=== PATIENT | female | born 1955 | race Caucasian/White ===

== ENCOUNTER 2016-10-25 10:30 | Observation (INO) | payer SELFPAY ==
--- NOTE | 2016-10-25 10:55 | ER Document Report ---
ED Medical Screen (RME) - General Chief Complaint: Chest Pain Stated Complaint: CHEST DISCOMFORT Notes: Patient says she's been experiencing chest "pressure" in the center of her chest intermittently since Friday. She also has noted that her heart is skipping beats. Her symptoms began on Friday and then she was fine on Friday and , but came back this morning and have been steady. She feels a little bit short of breath. Patient has a history of CABG, IDDM, hypertension, ex-smoker 30 years. Known LBBB on EKG. Patient of Dr. Harvey. TRAVEL OUTSIDE OF THE [place] IN LAST 30 DAYS: No - Related Data Allergies/Adverse Reactions: azithromycin [Azithromycin] Allergy (Mild, Verified 10/25/16 10:33) rash Past Medical History - Past Medical History Cardiac Medical History: Reports: Hx Coronary Artery Disease, Hx Heart Attack, Hx Hypercholesterolemia, Hx Hypertension Endocrine Medical History: Reports: Hx Diabetes Mellitus Type 2, Hx Hypothyroidism Renal/ Medical History: Denies: Hx Peritoneal Dialysis Past Surgical History: Reports: Hx Appendectomy, Hx Section - x two, Hx Coronary Artery Bypass Graft. Denies: Hx Pacemaker - Immunizations Hx Diphtheria, Pertussis, Tetanus Vaccination: Yes Physical Exam - Vital signs Vitals: Temp Pulse Resp BP Pulse Ox 98.5 F 111 H 12 166/75 H 98 10/25/16 10:45 10/25/16 10:45 10/25/16 10:45 10/25/16 10:45 10/25/16 10:45 Course - Vital Signs Vital signs: Temp Pulse Resp BP Pulse Ox 98.5 F 111 H 12 166/75 H 98 10/25/16 10:45 10/25/16 10:45 10/25/16 10:45 10/25/16 10:45 10/25/16 10:45
--- NOTE | 2016-10-25 11:02 | ER Document Report ---
ED Cardiac - General Chief Complaint: Chest Pain Stated Complaint: CHEST DISCOMFORT Time seen by provider: 11:05 Mode of Arrival: Ambulatory Information source: Patient Notes: Patient is a 61 year old female presenting to the emergency department for chest pressure and palpitations. Patient states she has had these symptoms intermittently since Friday. Patient states during the chest pressure and palpitations she also has some shortness of breath and dizziness (room spinning) . Patient states she feels like her heart is "skipping a beat." Patient states the chest pressure radiates from her anterior chest wall and into her epigastric region. Patient states she took 352 mg of Aspirin this morning at 03: 00. Patient has a cough during the exam but does not state it as a complaint for today's visit. Patient states she took all of her medications last night. Patient has a cardiac history of [place], CABG, cardiac catheterization, former smoker, and diabetes mellitus. Patient last had a stress test in 2012; patient' s last EKG on file is 03/05/2013. Patient states she woke up this morning with a blood glucose level of 115. Patient did not eat and went to work and checked her blood glucose again and it was 154. Patient's level at the emergency department was 315 and the patient denies eating anything. Patient states she takes metformin daily and insulin at meals. Patient's primary care physician is Dr. Harvey and she has been seen by Dr. Garza for cardiology. TRAVEL OUTSIDE OF THE [place] IN LAST 30 DAYS: No - HPI Patient complains to provider of: Chest pain, Palpitations, Shortness of breath Was the onset of pain: Sudden When did pain begin: Friday Chest pain location: Substernal, Under breast Quality of pain: Intermittent Cardiac risk factors: Diabetes, Hypertension, Smoker - former, 30 years, Hx OK Positive cardiac history: Yes Associated symptoms: Dizziness - room spinning sensation during palpitations and chest pressure, Palpitations, Shortness of breath Similar symptoms previously: Yes Recently seen / treated by doctor: No - Related Data Allergies/Adverse Reactions: azithromycin [Azithromycin] Allergy (Mild, Verified 10/25/16 10:33) rash Past Medical History - General Information source: Patient, Relative - Social History Smoking Status: Former Smoker - 30 years Cigarette use (# per day): No Chew tobacco use (# tins/day): No Frequency of alcohol use: None Drug Abuse: None Family History: None Patient has suicidal ideation: No Patient has homicidal ideation: No - Past Medical History Cardiac Medical History: Reports: Hx Coronary Artery Disease, Hx Heart Attack, Hx Hypercholesterolemia, Hx Hypertension Endocrine Medical History: Reports: Hx Diabetes Mellitus Type 2, Hx Hypothyroidism Past Surgical History: Reports: Hx Appendectomy, Hx Cardiac Catheterization - 2014 (no stents), Hx Section - x2, Hx Coronary Artery Bypass Graft - Immunizations Hx Diphtheria, Pertussis, Tetanus Vaccination: Yes Review of Systems - Review of Systems Constitutional: No symptoms reported EENT: No symptoms reported Cardiovascular: See HPI, Chest pain, Palpitations, Dizziness Respiratory: See HPI, Short of breath Gastrointestinal: No symptoms reported Genitourinary: No symptoms reported Female Genitourinary: No symptoms reported Musculoskeletal: No symptoms reported Skin: No symptoms reported Hematologic/Lymphatic: No symptoms reported Neurological/Psychological: No symptoms reported -: Yes All other systems reviewed and negative Physical Exam - Vital signs Vitals: Temp Pulse Resp BP Pulse Ox 98.5 F 111 H 12 166/75 H 98 10/25/16 10:45 10/25/16 10:45 10/25/16 10:45 10/25/16 10:45 10/25/16 10:45 Interpretation: Hypertensive - Notes Notes: GENERAL: Well-appearing, well-nourished and in no acute distress. HEAD: Atraumatic, normocephalic. EYES: Pupils equal round and reactive to light, extraocular movements intact, sclera anicteric, conjunctiva are normal. ENT: Nares patent. Moist mucous membranes. Patent airway. NECK: Normal range of motion, supple without lymphadenopathy. LUNGS: Breath sounds clear to auscultation bilaterally and equal. No wheezes, rales, or rhonchi. No reproducible chest wall tenderness with palpitation. HEART: Regular rate and rhythm without murmurs. ABDOMEN: Soft, non-tender. No guarding, no rebound. No masses appreciated. EXTREMITIES: Normal range of motion, trace edema to the bilateral lower extremities. NEUROLOGICAL: No focal neurological deficits. Moves all extremities spontaneously and on command. PSYCH: Normal affect. Normal mood. SKIN: Warm, Dry, normal turgor, no rashes or lesions noted. Course - Vital Signs Vital signs: Temp Pulse Resp BP Pulse Ox 98.5 F 111 H 13 157/76 H 99 10/25/16 10:45 10/25/16 10:45 10/25/16 12:03 10/25/16 12:03 10/25/16 12:03 - Laboratory Result Diagrams: 10/25/16 11:15 10/25/16 11:15 Laboratory results interpreted by me: 10/25/16 10/25/16 11:15 11:15 WBC 11.6 H Absolute Neutrophils 8.9 H Potassium 5.1 H Glucose 277 H Calcium 10.5 H Total Protein 9.3 H - Consults Dr. Fritz Time consulted: 12:50 Reason for consultation: 10/25/16 12:[address] Fritz for possible admission. Told to speak with Dr. Marks for this admission. Dr. Marks Time consulted: 12:52 Reason for consultation: 10/25/16 12:[address] Marks for possible admission; he will be the admitting physician for this patient. Scribe Documentation - Scribe Written by Scrsonali:: Leslye Chowdhury 10/25/16 11:15 acting as scribe for :: Andrea
[2016-10-25] MEDS ORDERED: NITROGLYCERIN 2% OINTMENT 1 GM PACKET TP ONE (11:08)
[2016-10-25 11:37] LABS: ABSOLUTE BASOPHILS # (AUTO) 0.1 10^3/uL (0.0-0.2); ABSOLUTE LYMPHOCYTES (AUTO) 1.9 10^3/uL (0.5-4.7); ABSOLUTE MONOCYTES (AUTO) 0.7 10^3/uL (0.1-1.4); ABSOLUTE NEUT (AUTO) 8.9 10^3/uL (1.7-8.2); BASOPHILS % (AUTO) 0.5 % (0-2); EOSINOPHILS % (AUTO) 0.4 % (0-6); HEMATOCRIT 40.1 % (36.0-47.0); HEMOGLOBIN 13.4 g/dL (12.0-15.5); HGB HCT DIFFERENCE 0.1; LYMPHOCYTES % (AUTO) 16.5 % (13-45); MEAN CORPUSCULAR HEMOGLOBIN 29.7 pg (27.0-33.4); MEAN CORPUSCULAR HGB CONC 33.3 g/dL (32.0-36.0); MEAN CORPUSCULAR VOLUME 89 fl (80-97); MONOCYTES % (AUTO) 5.7 % (3-13); RED BLOOD COUNT 4.49 10^6/uL (3.72-5.28); RED CELL DISTRIBUTION WIDTH 13.8 % (11.5-14.0); SEGMENTED NEUTROPHILS % (AUTO) 76.9 % (42-78); WHITE BLOOD COUNT 11.6 10^3/uL (4.0-10.5)
[2016-10-25 11:49] LABS: ALANINE AMINOTRANSFERASE 34 U/L (9-52); ALBUMIN 4.7 g/dL (3.5-5.0); ALKALINE PHOSPHATASE 126 U/L (38-126); ANION GAP 17 (5-19); ASPARTATE AMINO TRANSFERASE 25 U/L (14-36); BILIRUBIN,DIRECT 0.3 mg/dL (0.0-0.4); BILIRUBIN,TOTAL 1.2 mg/dL (0.2-1.3); BLOOD UREA NITROGEN 9 mg/dL (7-20); CALCIUM 10.5 mg/dL (8.4-10.2); CARBON DIOXIDE 27 mmol/L (22-30); CHLORIDE 101 mmol/L (98-107); CREATININE RESULT 0.68 mg/dL (0.52-1.25); GLUCOSE 277 mg/dL (75-110); LIPASE 73.7 U/L (23-300); POTASSIUM 5.1 mmol/L (3.6-5.0); SODIUM 144.5 mmol/L (137-145); TOTAL PROTEIN 9.3 g/dL (6.3-8.2)
[2016-10-25 12:01] LABS: CREATINE KINASE MB 1.04 ng/mL (<4.55); TROPONIN I < 0.012 ng/mL
[2016-10-25 13:25] LABS: APPEARANCE,URINE CLEAR; BILIRUBIN,URINE NEGATIVE (NEGATIVE); GLUCOSE, URINE >=500 mg/dL (NEGATIVE); KETONES,URINE 20 mg/dL (NEGATIVE); LEUKOCYTE ESTERASE,URINE NEGATIVE (NEGATIVE); NITRITE,URINE NEGATIVE (NEGATIVE); PROTEIN,URINE NEGATIVE (NEGATIVE); URINE SPECIFIC GRAVITY 1.005; UROBILINOGEN,URINE NEGATIVE mg/dL (<2.0)
[2016-10-25] MEDS ORDERED: ACETAMINOPHEN 325 MG TABLET PO PRN (13:52)
[2016-10-25] MEDS ORDERED: NORMAL SALINE 1000 ML 1,000 ML IV PRN (13:52)
[2016-10-25] MEDS ORDERED: ONDANSETRON HCL INJ/PF 4 MG/2 ML SDV IV PRN (13:52)
[2016-10-25] MEDS ORDERED: DEXTROSE 40% GEL 15 GM TUBE PO PRN ×2 (13:59)
[2016-10-25] MEDS ORDERED: DEXTROSE 50%-WATER 25 GM/50 ML DISP.SYRIN IV PRN ×2 (13:59)
[2016-10-25] MEDS ORDERED: GLUCAGON,HUMAN RECOMB 1 MG INJ IM PRN (13:59)
--- NOTE | 2016-10-25 14:34 | PDOC H&P ---
History of Present Illness Admission Date/PCP: YEVGENIY RUIZ MD Patient complains of: Palpitation and chest pain History of Present Illness: CARIDAD BLAS is a 61 year old female, history of coronary artery disease, coronary artery bypass grafting 2008, last stress test was about 2 years ago presents to the emergency room of palpitations with associated chest discomfort for the past 4 days. Patient does report that it is more of the palpitation and subsequently has chest discomfort on the anterior chest wall sometimes radiating to the left upper extremity. There is no associated shortness of breath or sweating but the patient felt lightheaded and dizzy at times during the episodes. Symptoms would occur on and off until last night the symptom is worse, she went to work this morning and the symptoms persisted and therefore she went to the emergency room for evaluation. Patient reports she has chronic left bundle branch block and she is being followed by Dr. Garza for coronary artery disease. Her most recent catheterization was after the stress test done recently on which she was told that her grafts were patent. Her symptoms would happen with no relation to activity. She has occasional cough but nothing more than usual. She denies having any chills or fever or sweating. No nausea or vomiting. No PND or orthopnea. Past Medical History Past Medical History: Medication reconciliation pending verification from the patient's pharmacist. Cardiac Medical History: Reports: Coronary Artery Disease, Myocardial Infarction , Hyperlipidema, Hypertension Endocrine Medical History: Reports: Diabetes Mellitus Type 2, Hypothyroidism Skin Medical History: Reports: Other - Hydradenitis suppurativa Psychiatric Medical History: Reports: General Anxiety Disorder, Other - Panic Past Surgical History Past Surgical History: Reports: Appendectomy, Cardiac Catheterization - 2014 ( no stents), Section - x2, Coronary Artery Bypass Graft, Other - Incision and drainage of abscesses on the axilla Denies: Pacemaker Social History Information Source: Patient Smoking Status: Former Smoker - 30 years Frequency of Alcohol Use: None Hx Recreational Drug Use: No Drugs: None Family History Family History: Other - Heart disease runs in her family Parental Family History Reviewed: Yes Children Family History Reviewed: Yes Sibling(s) Family History Reviewed.: Yes Medication/Allergy Allergies/Adverse Reactions: azithromycin [Azithromycin] Allergy (Mild, Verified 10/25/16 10:33) rash Review of Systems Constitutional: PRESENT: weakness - Generalized. ABSENT: chills, fever(s), headache(s), night sweats, weight gain, weight loss Eyes: ABSENT: visual disturbances Ears: ABSENT: hearing changes Nose, Mouth, and Throat: ABSENT: mouth pain, sore throat Cardiovascular: PRESENT: chest pain, palpitations. ABSENT: dyspnea on exertion , edema, orthropnea Respiratory: PRESENT: cough. ABSENT: hemoptysis, sputum Gastrointestinal: ABSENT: abdominal pain, coffee ground emesis, constipation, diarrhea, hematemesis, hematochezia, melena, nausea, vomiting Genitourinary: ABSENT: difficulty urinating, dysuria, hematuria Musculoskeletal: ABSENT: joint swelling Integumentary: PRESENT: other - Multiple scars on the axilla with some drainage intermittently left more than the right. ABSENT: rash, wounds Neurological: ABSENT: abnormal gait, abnormal speech, confusion, dizziness, focal weakness, syncope Psychiatric: PRESENT: anxiety. ABSENT: depression, homidical ideation, suicidal ideation Endocrine: ABSENT: cold intolerance, heat intolerance, polydipsia, polyuria Hematologic/Lymphatic: ABSENT: easy bleeding, easy bruising Physical Exam Vital Signs: Temp Pulse Resp BP Pulse Ox 98.5 F 111 H 17 135/80 H 96 10/25/16 10:45 10/25/16 10:45 10/25/16 14:01 10/25/16 14:01 10/25/16 14:01 Intake & Output 10/24/16 10/25/16 10/26/16 06:59 06:59 06:59 Weight 102.3 kg General appearance: PRESENT: no acute distress, cooperative, other - Overweight Head exam: PRESENT: atraumatic, normocephalic Eye exam: PRESENT: conjunctiva pink, EOMI, PERRLA. ABSENT: scleral icterus Ear exam: PRESENT: normal external ear exam. ABSENT: drainage Mouth exam: PRESENT: dry mucosa, neck supple, tongue midline Throat exam: ABSENT: post pharyngeal erythema, tonsillar erythema Neck exam: ABSENT: carotid bruit, JVD, lymphadenopathy, thyromegaly Respiratory exam: PRESENT: clear to auscultation david. ABSENT: rales, rhonchi, wheezes Cardiovascular exam: PRESENT: RRR, +S1, +S2, systolic murmur - 2/6 in the left sternal border. ABSENT: diastolic murmur, gallop, rubs Pulses: PRESENT: normal dorsalis pedis pul Vascular exam: PRESENT: normal capillary refill GI/Abdominal exam: PRESENT: normal bowel sounds, soft. ABSENT: distended, guarding, mass, organolmegaly, rebound, tenderness Rectal exam: PRESENT: deferred Extremities exam: PRESENT: full ROM. ABSENT: calf tenderness, clubbing, pedal edema Neurological exam: PRESENT: alert, awake, oriented to person, oriented to place , oriented to time, oriented to situation Psychiatric exam: PRESENT: appropriate affect, normal mood. ABSENT: homicidal ideation, suicidal ideation Skin exam: PRESENT: dry, warm, other - On both her axilla noted scarring and induration with some purulent drainage noted on the left. ABSENT: cyanosis, jaundice, rash Results Laboratory Results: 10/25/16 11:15 10/25/16 11:15 10/25/16 10/25/16 10/25/16 11:15 11:15 12:54 WBC 11.6 H RBC 4.49 Hgb 13.4 Hct 40.1 MCV 89 MCH 29.7 MCHC 33.3 RDW 13.8 Plt Count 291 Seg Neutrophils % 76.9 Lymphocytes % 16.5 Monocytes % 5.7 Eosinophils % 0.4 Basophils % 0.5 Absolute Neutrophils 8.9 H Absolute Lymphocytes 1.9 Absolute Monocytes 0.7 Absolute Eosinophils 0.0 Absolute Basophils 0.1 Sodium 144.5 Potassium 5.1 H Chloride 101 Carbon Dioxide 27 Anion Gap 17 BUN 9 Creatinine 0.68 Est GFR ( Amer) > 60 Est GFR (Non-Af Amer) > 60 Glucose 277 H Calcium 10.5 H Total Bilirubin 1.2 AST 25 ALT 34 Alkaline Phosphatase 126 Total Protein 9.3 H Albumin 4.7 Lipase 73.7 Urine Color STRAW Urine Appearance CLEAR Urine pH 7.0 Ur Specific Novelty 1.005 Urine Protein NEGATIVE Urine Glucose (UA) >=500 H Urine Ketones 20 H Urine Blood NEGATIVE Urine Nitrite NEGATIVE Ur Leukocyte Esterase NEGATIVE Urine WBC (Auto) 0 Urine RBC (Auto) 0 10/25/16 11:15 CK-MB (CK-2) 1.04 Troponin I < 0.012 Impressions: Chest X-Ray 10/25/16 10:52 IMPRESSION: NO SIGNIFICANT RADIOGRAPHIC FINDING IN THE CHEST. Assessment & Plan - Diagnosis (1) Chest pain Qualifiers: Chest pain type: unspecified Qualified Code(s): R07.9 - Chest pain, unspecified Is this a current diagnosis for this admission?: Yes (2) Palpitation Is this a current diagnosis for this admission?: Yes (3) Hypercalcemia Is this a current diagnosis for this admission?: Yes (4) Hidradenitis suppurativa Is this a current diagnosis for this admission?: Yes (5) Coronary artery disease Qualifiers: Coronary Disease-Associated Artery/Lesion type: [place] artery [place] vs. transplanted heart: [place] heart Associated angina: angina presence unspecified Qualified Code(s): I25.10 - Atherosclerotic heart disease of [place] coronary artery without angina pectoris Is this a current diagnosis for this admission?: Yes (6) Diabetes mellitus type 2 in obese Is this a current diagnosis for this admission?: Yes (7) Hyperlipidemia Qualifiers: Hyperlipidemia type: unspecified Qualified Code(s): E78.5 - Hyperlipidemia, unspecified Is this a current diagnosis for this admission?: Yes (8) Essential hypertension Is this a current diagnosis for this admission?: Yes (9) Hypothyroidism (acquired) Is this a current diagnosis for this admission?: Yes (10) Panic disorder Is this a current diagnosis for this admission?: Yes - Time Time Spent: 50 to 70 Minutes - Plan Summary Plan Summary: The patient will be admitted to observation. I will put the patient on aspirin and nitroglycerin. In the meantime she will be on supplemental oxygen, DVT prophylaxis with Lovenox. We will serially monitor cardiac enzymes 3. Obtain a d-dimer, tsh, free t4. If cardiac enzymes are normal outpatient stress test will be scheduled which the patient prefers. We will hydrate the patient with normal saline and recheck electrolytes. I will begin oral doxycycline and Flagyl. We will clean axilla with chlorhexidine wash 3 times a day. She will be on sliding scale insulin. Further testing depends on the initial evaluation as outlined above.
[2016-10-25] MEDS ORDERED: NITROGLYCERIN 2% OINTMENT 1 GM PACKET TP SCH (15:00)
[2016-10-25] MEDS: INSULIN REG, HUMAN 100 UNIT/ML 3 ML VIAL (PYX) SUBCUT PRN (17:23)
[2016-10-25] MEDS: DOCUSATE SODIUM 100 MG CAPSULE PO SCH (18:00)
[2016-10-25] MEDS: METRONIDAZOLE 500 MG TABLET PO SCH (18:00)
[2016-10-25] MEDS: NITROGLYCERIN 2% OINTMENT 1 GM PACKET TP SCH (18:00)
[2016-10-25 19:17] LABS: TROPONIN I < 0.012 ng/mL
[2016-10-25] MEDS: DOXYCYCLINE HYCLATE 100 MG TABLET PO SCH (21:04)
--- NOTE | 2016-10-25 22:26 | EKG REPORT ---
SEVERITY:- ABNORMAL ECG - SINUS TACHYCARDIA LEFT BUNDLE BRANCH BLOCK : Confirmed by: Jina Lewis MD 25-Oct-2016 22:25:52
[2016-10-26] MEDS: METRONIDAZOLE 500 MG TABLET PO SCH ×3 (00:48→11:32)
[2016-10-26] MEDS: NITROGLYCERIN 2% OINTMENT 1 GM PACKET TP SCH ×3 (00:49→11:30)
[2016-10-26 01:22] LABS: CREATINE KINASE MB 0.62 ng/mL (<4.55)
[2016-10-26 01:30] LABS: TROPONIN I < 0.012 ng/mL
[2016-10-26] MEDS ORDERED: LANSOPRAZOLE 30 MG TAB.RAP.DR PO SCH (06:00)
[2016-10-26 07:23] LABS: ANION GAP 12 (5-19); BLOOD UREA NITROGEN 10 mg/dL (7-20); CALCIUM 9.7 mg/dL (8.4-10.2); CARBON DIOXIDE 25 mmol/L (22-30); CHLORIDE 102 mmol/L (98-107); CREATINE KINASE 46 U/L (30-135); CREATININE RESULT 0.66 mg/dL (0.52-1.25); GLUCOSE 268 mg/dL (75-110); POTASSIUM 4.4 mmol/L (3.6-5.0); SODIUM 139.1 mmol/L (137-145)
[2016-10-26 07:30] LABS: CREATINE KINASE MB 0.57 ng/mL (<4.55)
[2016-10-26 07:35] LABS: TROPONIN I < 0.012 ng/mL
[2016-10-26] MEDS ORDERED: ENOXAPARIN SODIUM INJ 40 MG/0.4 ML DISP.SYRIN SUBCUT SCH (08:00)
[2016-10-26] MEDS: INSULIN REG, HUMAN 100 UNIT/ML 3 ML VIAL (PYX) SUBCUT PRN ×2 (08:33→11:32)
[2016-10-26] MEDS: DOCUSATE SODIUM 100 MG CAPSULE PO SCH (09:50)
[2016-10-26] MEDS: DOXYCYCLINE HYCLATE 100 MG TABLET PO SCH (09:52)
[2016-10-26] MEDS ORDERED: ASPIRIN 81 MG TABLET, CHEWABLE PO SCH (10:00)
[2016-10-26] MEDS ORDERED: METOPROLOL TARTRATE 50 MG TABLET PO ONE (13:00)
[2016-10-26 13:17] VITALS: BP 146/76
--- NOTE | 2016-10-26 14:32 | PDOC DISCHARGE SUMMARY ---
General - Admit/Disc Date/PCP Admission Date/Primary Care Provider: 10/25/16 13:52 YEVGENIY URIZ MD Discharge Date: 10/26/16 - Discharge Diagnosis (1) Chest pain Is this a current diagnosis for this admission?: Yes (2) Palpitation Is this a current diagnosis for this admission?: Yes (3) Hypercalcemia Is this a current diagnosis for this admission?: Yes (4) Hidradenitis suppurativa Is this a current diagnosis for this admission?: Yes (5) Coronary artery disease Is this a current diagnosis for this admission?: Yes (6) Diabetes mellitus type 2 in obese Is this a current diagnosis for this admission?: Yes (7) Hyperlipidemia Is this a current diagnosis for this admission?: Yes (8) Essential hypertension Is this a current diagnosis for this admission?: Yes (9) Hypothyroidism (acquired) Is this a current diagnosis for this admission?: Yes (10) Panic disorder Is this a current diagnosis for this admission?: Yes - Additional Information Resuscitation Status: Full Code Discharge Diet: Cardiac - low-fat low-salt, Diabetic - no concentrated sweets Discharge Activity: Activity As Tolerated, Balance Activity w/Rest Home Medications: Amlodipine Besylate [Norvasc 10 mg Tablet] 10 mg PO DAILY 10/25/16 Aspirin [Aspirin 325 mg Tablet] 325 mg PO DAILY 10/25/16 Citalopram Hydrobromide [Celexa 10 mg Tablet] 5 mg PO DAILY 10/25/16 Glimepiride [Amaryl 4 mg Tablet] 4 mg PO BID 10/25/16 Insulin Regular, Human [Novolin R (Reg) Insulin 100 unit/mL] 30 units SQ AC 02/03 Levothyroxine Sodium [Synthroid] 75 mcg PO QAM 10/25/16 Metformin HCl [Glucophage] 1,000 mg PO BID 10/25/16 Chlorhexidine Gluconate [Antiseptic Skin Cleanser] 237 ml TP TID #2 bottle 10/26 Doxycycline Hyclate [Vibramycin 100 mg Tablet] 100 mg PO Q12 #28 tablet Losartan Potassium [Cozaar 100 mg Tablet] 0.5 tab PO DAILY #0 10/26/16 Metoprolol Tartrate [Lopressor 50 mg Tablet] 100 mg PO DAILY #60 tablet Metronidazole [Flagyl 500 mg Tablet] 500 mg PO Q6 #56 tablet 10/26/16 Additional Information: 1. Stress as outpatient with Dr. Garza in one week. 2. Avoid using deodorants. 3. Wash axilla bilaterally with chlorhexidine 3 times a day. History of Present Illness Patient complains of: Chest pain and palpitation History of Present Illness: CARIDAD BLAS is a 61 year old female, history of coronary artery disease, coronary artery bypass grafting 2008, last stress test was about 2 years ago presents to the emergency room of palpitations with associated chest discomfort for the past 4 days. Patient does report that it is more of the palpitation and subsequently has chest discomfort on the anterior chest wall sometimes radiating to the left upper extremity. There is no associated shortness of breath or sweating but the patient felt lightheaded and dizzy at times during the episodes. Symptoms would occur on and off until last night the symptom is worse, she went to work this morning and the symptoms persisted and therefore she went to the emergency room for evaluation. Patient reports she has chronic left bundle branch block and she is being followed by Dr. Garza for coronary artery disease. Her most recent catheterization was after the stress test done recently on which she was told that her grafts were patent. Her symptoms would happen with no relation to activity. She has occasional cough but nothing more than usual. She denies having any chills or fever or sweating. No nausea or vomiting. No PND or orthopnea. Hospital Course Hospital Course: The patient was admitted to telemetry. WBC was mildly elevated and the patient has hydradenitis suppurativa likely contributing to the mild elevation. Patient was started on antibiotics with doxycycline as well as metronidazole. Chlorhexidine wash was applied 3 times a day. In terms of the patient's chest pain serial cardiac enzymes were obtained and they were negative for myocardial infarction. The patient was placed on antiplatelet therapy. Chest pain has resolved. 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 Course was noted for mild hypercalcemia, that resolved with hydration. The patient improved. TSH was normal. D-dimer is likewise normal. Patient was restarted on her beta blake and the dose was increased. The rest of the hospital stay was unremarkable. Physical Exam Vital Signs: Temp Pulse Resp BP Pulse Ox 98.0 F 91 18 146/76 H 99 10/26/16 13:15 10/26/16 13:15 10/26/16 13:15 10/26/16 13:15 10/26/16 13:15 Intake & Output 10/25/16 10/26/16 10/27/16 06:59 06:59 06:59 Intake Total 300 Output Total 700 Balance -400 Weight 102.1 kg General appearance: PRESENT: no acute distress, cooperative Head exam: PRESENT: normocephalic Eye exam: PRESENT: EOMI Mouth exam: PRESENT: moist, neck supple Neck exam: ABSENT: JVD Respiratory exam: PRESENT: clear to auscultation david Cardiovascular exam: PRESENT: RRR. ABSENT: gallop GI/Abdominal exam: PRESENT: soft. ABSENT: distended, tenderness Extremities exam: ABSENT: pedal edema Neurological exam: PRESENT: alert, awake, oriented to person, oriented to place , oriented to time, oriented to situation Skin exam: PRESENT: dry, warm. ABSENT: cyanosis Results Laboratory Results: 10/26/16 06:29 10/26/16 10/26/16 06:29 06:29 Sodium 139.1 Potassium 4.4 Chloride 102 Carbon Dioxide 25 Anion Gap 12 BUN 10 Creatinine 0.66 Est GFR ( Amer) > 60 Est GFR (Non-Af Amer) > 60 Glucose 268 H Calcium 9.7 TSH 3.08 10/25/16 10/25/16 10/26/16 18:30 18:30 00:44 Creatine Kinase 52 40 CK-MB (CK-2) 0.60 Troponin I < 0.012 10/26/16 10/26/16 10/26/16 00:44 06:29 06:29 Creatine Kinase 46 CK-MB (CK-2) 0.62 0.57 Troponin I < 0.012 < 0.012 Impressions: Chest X-Ray 10/25/16 10:52 IMPRESSION: NO SIGNIFICANT RADIOGRAPHIC FINDING IN THE CHEST. Qualifiers PATEINT BEING DISCHARGED WITH ANY OF THE FOLLOWING DIAGNOSIS?: No Plan Discharge Plan: Follow-up with primary care physician in one week. Follow-up with Dr. Garza in one week. Time Spent: Less than 30 Minutes
[2016-10-27] MEDS ORDERED: METOPROLOL TARTRATE 50 MG TABLET PO SCH (10:00)
== END 2016-10-26 15:16 | disposition home or self-care (01) ==
LOC: ER 10:30 → EH 13:52 → UNDOADMOB 17:36 → 4N 10-26 00:15
DX: R07.9 Chest pain, unspecified (principal); R00.2 Palpitations; E83.52 Hypercalcemia; L73.2 Hidradenitis suppurativa; I25.10 Atherosclerotic heart disease of native coronary artery without angina pectoris; E11.69 Type 2 diabetes mellitus with other specified complication; E78.5 Hyperlipidemia, unspecified; I10 Essential (primary) hypertension; E03.9 Hypothyroidism, unspecified; F41.0 Panic disorder [episodic paroxysmal anxiety]; Z95.1 Presence of aortocoronary bypass graft; Z87.891 Personal history of nicotine dependence
CPT/HCPCS: 93005; 99285; 36415; 82553 ×2; 82962 ×2; 82550 ×2; 83690; 84443; 85025; 80048; 80053; 81001; 84484 ×2; 85379; 71020; 93010; G0378 ×2; J1815 ×2; J3490 ×2

== ENCOUNTER → 2018-08-03 | Outpatient (CLI) | payer SELFPAY ==
[~2018-08-03] MED LIST: REGADENOSON INJ 0.4 MG/5 ML DISP.SYRIN IV ONE
--- NOTE | 2018-08-03 19:39 | XCELERA REPORT ---
[address] [address] Transthoracic Echocardiogram Report Name: CARIDAD BLAS Age: 63 yrs Gender: Female : 1955 Patient Status: Outpatient Patient Location: RAD Study Date: 08/03/2018 10:35 AM Height: 68 in Weight: 200 lb BSA: 2.0 m2 Procedure: A two-dimensional transthoracic echocardiogram with color flow and Doppler was performed. Study Quality: Fair. Reason For Study: ABN EKG, MURMUR History: ABN EKG, / MURMUR / PRE-OP. Ordering Physician: JINA DUGAN Performed By: Teresa Dalal Interpretation Summary The left ventricle is normal in size. There is normal left ventricular wall thickness. LV EF is 55% Left ventricular systolic function is low normal. Doppler measurements suggest impaired left ventricular relaxation, which is associated with grade I/IV or mild diastolic dysfunction The left ventricular wall motion is normal. Septal motion is consistent with conduction abnormality There is no thrombus. The right ventricle is normal in size and function. The right atrium is normal. The left atrial size is normal. There is no evidence of mitral valve prolapse. There is no vegetation seen on the mitral valve. There is no mitral valve stenosis. There is a mild amount of mitral regurgitation There is no aortic valve stenosis There is no LVOT obstruction. No aortic regurgitation is present. There is no tricuspid stenosis. There is a trace amount of tricuspid regurgitation There is mild pulmonary hypertension by echo rvsp IS 32 TO 37 MM OF hG , WITH ra MEAN OF 5 TO 10. There is no pulmonic valvular stenosis. There is no pulmonic valvular regurgitation. The aortic root is normal size. The inferior vena cava appeared normal and decreased > 50% with respiration (RAP 5-10 mmHg) There is no pericardial effusion. MMode/2D Measurements & Calculations RVDd: 2.9 cm LVIDd: 4.3 cm FS: 26.1 % Ao root diam: 2.4 cm IVSd: 0.95 cm LVIDs: 3.1 cm EDV(Teich): 81.2 ml Ao root area: 4.5 cm2 LVPWd: 0.98 cm ESV(Teich): 39.3 ml LA dimension: 3.4 cm EF(Teich): 51.6 % Doppler Measurements & Calculations MV E max lucila: MV P1/2t max lucila: Ao V2 max: LV V1 max P.6 cm/sec 149.2 cm/sec 116.8 cm/sec 4.3 mmHg MV A max lucila: MV P1/2t: 43.8 msec Ao max P.5 mmHgLV V1 max: 44.4 cm/sec MVA(P1/2t): 5.0 cm2 103.6 cm/sec MV E/A: 3.3 MV dec slope: 997.5 cm/sec2 MV dec time: 0.14 sec PA V2 max: TR max lucila: MV P1/2t-pr_phl: 156.7 cm/sec 260.6 cm/sec 43.8 msec PA max P.8 mmHgTR max P.2 mmHg Left Ventricle The left ventricle is normal in size. There is normal left ventricular wall thickness. LV EF is 55%. Left ventricular systolic function is low normal. Doppler measurements suggest impaired left ventricular relaxation, which is associated with grade I/IV or mild diastolic dysfunction. The left ventricular wall motion is normal. Septal motion is consistent with conduction abnormality. There is no thrombus. Right Ventricle The right ventricle is normal in size and function. Atria The right atrium is normal. The left atrial size is normal. Mitral Valve There is no evidence of mitral valve prolapse. There is no vegetation seen on the mitral valve. There is no mitral valve stenosis. There is a mild amount of mitral regurgitation. Aortic Valve There is no aortic valvular vegetation. There is no aortic valve stenosis. There is no LVOT obstruction. No aortic regurgitation is present. Tricuspid Valve There is no tricuspid stenosis. There is a trace amount of tricuspid regurgitation. There is mild pulmonary hypertension by echo. rvsp IS 32 TO 37 MM OF hG , WITH ra MEAN OF 5 TO 10. Pulmonic Valve The pulmonic valve is not well visualized. There is no pulmonic valvular stenosis. There is no pulmonic valvular regurgitation. Great Vessels The aortic root is normal size. The inferior vena cava appeared normal and decreased > 50% with respiration (RAP 5-10 mmHg). Effusions There is no pericardial effusion. : JINA DUGAN > Jina Dugan
--- NOTE | 2018-08-03 19:51 | DRAGON STRESS TEST REPORT ---
Intravenous Lexiscan Cardiolite stress test using single photon emmision computerized tomography. Date of procedure: 08/03/2018. Ordering Provider: Dr. Jina Lewis. Patient's status: Out Patient. Indication: Murmur, abnormal EKG, and preoperative cardiac risk assessment in a patient with history of coronary artery disease, history of old myocardial infarction, and history of coronary artery bypass graft surgery in 2008. [STILES to the LAD, and saphenous vein graft to the right PDA]. Age, diabetes mellitus, hypertension, and family history of coronary artery disease. Coronary risk factors: Resting EKG: Sinus Rhythm. LBBB. Stress EKG: Due to LBBB EKG is nondiagnostic of ischemia. Patient had no chest pain or discomfort, and there were no arrhythmias seen. Reason for termination: Protocol. Conclusions: Normal EKG and hemodynamic response to IV Lexiscan. Nuclear data: At rest the patient was given 15.05 millicuries of technetium 99m sestamibi injected intravenously. As per protocol rest non gated SPECT images were obtained. Subsequently the patient was given intravenous Lexiscan at a dose of 0.4 mg in 5 mL intravenously, followed by flush with normal saline. Subsequently the stress dose of 43.6 millicuries of technetium 99m sestamibi was injected intravenously. As per protocol stress gated images were obtained. Nuclear interpretation: Review of images showed that there is breast attenuation artifact of the anterior and apical hagan. In spite of this all segments of the myocardium had normal perfusion at rest, and normal perfusion post stress with IV Lexiscan. All segments of the myocardium had normal motion, contraction, and thickening by gated study. T. I D. ratio was normal at . There is no transient ischemic calcification of the left ventricle. Computer read rest, and stress left ventricular ejection fraction were 35 %, and 33 %,respectively. This is erroneous, and visually both the stress and rest ejection fractions were normal, and greater than 55%. Conclusion: 1. There is no scintigraphic evidence of Lexiscan induced myocardial ischemia. 2. There is no scintigraphic evidence of myocardial infarction/scar. Recommendations: 1. Aggressive risk factor modification, and treating the underlying co- morbidities. 2. Check echo for LV ejection fraction correlation. [facility]
== END ==
LOC: RAD 07:34
PROVIDERS: ATTEND Specialist
DX: Z01.810 Encounter for preprocedural cardiovascular examination (principal); R94.31 Abnormal electrocardiogram [ECG] [EKG]; I25.10 Atherosclerotic heart disease of native coronary artery without angina pectoris
CPT/HCPCS: 93306; 93017; 78452; A9500; J2785; Q9969

== ENCOUNTER 2018-08-13 10:37 | Day surgery (SDC) | payer SELFPAY ==
[2018-08-11 11:33] LABS: HEMATOCRIT 37.7 % (36.0-47.0); HEMOGLOBIN 12.7 g/dL (12.0-15.5); MEAN CORPUSCULAR HEMOGLOBIN 28.5 pg (27.0-33.4); MEAN CORPUSCULAR HGB CONC 33.5 g/dL (32.0-36.0); MEAN CORPUSCULAR VOLUME 85 fl (80-97); PLATELET COUNT 355 10^3/uL (150-450); RED BLOOD COUNT 4.43 10^6/uL (3.72-5.28); RED CELL DISTRIBUTION WIDTH 13.4 % (11.5-14.0); WHITE BLOOD COUNT 12.9 10^3/uL (4.0-10.5)
[2018-08-11 11:52] LABS: ANION GAP 12 (5-19); BLOOD UREA NITROGEN 15 mg/dL (7-20); CALCIUM 10.1 mg/dL (8.4-10.2); CARBON DIOXIDE 26 mmol/L (22-30); CHLORIDE 100 mmol/L (98-107); GLUCOSE 257 mg/dL (75-110); POTASSIUM 4.3 mmol/L (3.6-5.0); SODIUM 138.2 mmol/L (137-145)
--- NOTE | 2018-08-11 11:52 | RADIOLOGY REPORT (SQ) ---
EXAM DESCRIPTION: CHEST PA/LATERAL COMPLETED DATE/TIME: 08/11/2018 11:39 am REASON FOR STUDY: PRE-OP COMPARISON: 10/25/2016 EXAM PARAMETERS: NUMBER OF VIEWS: two views TECHNIQUE: Digital Frontal and Lateral radiographic views of the chest acquired. RADIATION DOSE: NA LIMITATIONS: none FINDINGS: LUNGS AND PLEURA: No opacities, masses or pneumothorax. No pleural effusion. Stable calci fied right mid lung and basilar granuloma. MEDIASTINUM AND HILAR STRUCTURES: No masses or contour abnormalities. HEART AND VASCULAR STRUCTURES: Normal heart size. Atherosclerotic aorta. Evidence of prior median s ternotomy and CABG. BONES: No acute findings. HARDWARE: None in the chest. OTHER: No other significant finding. IMPRESSION: No evidence of acute cardiopulmonary process per TECHNICAL DOCUMENTATION: JOB ID: [id number] [employer]- All Rights Reserved Reading location - IP/workstation name: [email or web address]
--- NOTE | 2018-08-11 19:37 | EKG REPORT ---
SEVERITY:- ABNORMAL ECG - SINUS RHYTHM LEFT BUNDLE BRANCH BLOCK : Confirmed by: Jina Lewis MD 11-Aug-2018 19:37:21
[~2018-08-13 10:37] MED LIST changes: +LACTATED RINGERS 1000 ML IV PRN; +LIDOCAINE 0.5% INJ-PF (5 MG/ML) 50 ML SDV SUBCUT PRN; -REGADENOSON INJ 0.4 MG/5 ML DISP.SYRIN IV ONE; +VANCOMYCIN HCL 1,000 MG in DEXTROSE 5%-WATER 250 ML IV PRN
[2018-08-13] MEDS ORDERED: LIDOCAINE 2% INJ-PF (20 MG/ML) 10 ML AMPUL ONE (13:08)
[2018-08-13] MEDS ORDERED: MIDAZOLAM 2 MG/2 ML INJ ONE (13:09)
[2018-08-13] MEDS ORDERED: FENTANYL CITRATE INJ/PF 100 MCG/2 ML AMPUL ONE (13:09)
[2018-08-13] MEDS ORDERED: DEXAMETHASONE SOD PHOSPHATE INJ 4 MG/1 ML VIAL ONE (13:09)
[2018-08-13] MEDS ORDERED: PROPOFOL INJ 200 MG/20 ML VIAL IV ONE (13:09)
[2018-08-13] MEDS ORDERED: ONDANSETRON HCL INJ/PF 4 MG/2 ML SDV ONE (13:09)
[2018-08-13] MEDS ORDERED: INSULIN LISPRO 100 UNIT/ML 3 ML VIAL ONE (13:11)
[2018-08-13] MEDS ORDERED: BUPIVACAINE HCL 0.25 % INJ/PF (2.5 MG/1 ML) 30 ML VIAL ONE (13:12)
[2018-08-13] MEDS ORDERED: METOCLOPRAMIDE HCL INJ/PF 10 MG/2 ML SDV ONE (13:32)
[2018-08-13] MEDS ORDERED: FAMOTIDINE INJ/PF 20 MG/2 ML SDV IV ONE (13:32)
[2018-08-13] MEDS ORDERED: CEFAZOLIN INJ 1 GM VIAL ONE (14:11)
[2018-08-13] MEDS ORDERED: EPHEDRINE SULFATE INJ 50 MG/1 ML AMPULE ONE (14:26)
[2018-08-13] MEDS ORDERED: SUCCINYLCHOLINE CHLORIDE INJ 200 MG/10 ML VIAL ONE (14:31)
[2018-08-13] MEDS ORDERED: DIPHENHYDRAMINE HCL 50 MG/ML VIAL IV PRN (14:31)
[2018-08-13] MEDS ORDERED: MORPHINE SULFATE 10 MG/ML INJ IV PRN (14:31)
[2018-08-13] MEDS ORDERED: FENTANYL CITRATE INJ/PF 100 MCG/2 ML AMPUL IV PRN ×3 (14:31)
[2018-08-13] MEDS ORDERED: MEPERIDINE HCL/PF INJ 25 MG/1 ML DISP.SYRIN IV PRN (14:31)
[2018-08-13] MEDS ORDERED: GLYCOPYRROLATE 1 MG/5 ML SYRINGE ONE (14:31)
[2018-08-13] MEDS ORDERED: ONDANSETRON HCL INJ/PF 4 MG/2 ML SDV IV PRN (14:31)
[2018-08-13] MEDS ORDERED: PROMETHAZINE HCL INJ 25 MG/1 ML VIAL IV PRN ×2 (14:31)
[2018-08-13] MEDS ORDERED: OXYCODONE-ACETAMINOPHEN 5-325 MG TABLET PO PRN ×2 (14:31)
--- NOTE | 2018-08-13 16:44 | Discharge Summary ---
Discharge Summary (SDC) - Discharge Final Diagnosis: bilateral axillary hidradenitis Date of Surgery: 08/13/18 Discharge Date: 08/13/18 Condition: Stable Treatment or Instructions: d/c home. diet: as tolerated. Acitivity: nonstrenuous. f/u 1 week. OK to remove bandage and shower in 48 hours. No tub baths or swimming pools until cleared by me. [place] 10/325 mg PO q6 hours PRN pain. Referrals: YEVGENIY RUIZ MD [Primary Care Provider] - Discharge Diet: As Tolerated Respiratory Treatments at Home: Deep Breathing/Coughing, Incentive Spirometer Discharge Activity: Activity As Tolerated, Balance Activity w/Rest Home Care Assistance: None Needed Report the Following to Your Physician Immediately: Shortness of Breath, Nausea, Vomiting, Increase in Pain, Fever over 101 Degrees, Unusual Bleeding, Redness, Swelling, Warmth, Increased Soreness
[2018-08-13 19:10] VITALS: BP 151/53
--- NOTE | 2018-08-14 09:43 | Operative Report ---
Nonrecallable Operative Report DATE OF SURGERY: 08/13/18 PREOPERATIVE DIAGNOSIS: Severe bilateral axillary hidradenitis POSTOPERATIVE DIAGNOSIS: Same as above OPERATION: 1. Excision of severe bilateral axillary hidradenitis. 2. Intermediate closure of left axillary 21 cm incision. 3. Rotation flap closure of right axillary incision, 25 cm in length. SURGEON: IDALIA HDZ 1ST ANALYTICS DEVELOPER: BARBARA PARK ANESTHESIA: GA TISSUE REMOVED OR ALTERED: Bilateral axillary skin with hidradenitis COMPLICATIONS: None apparent ESTIMATED BLOOD LOSS: 75 cc PROCEDURE: Drains/implants: 15 [place]grin round Orestes drains in bilateral axillae. Procedure in detail: After informed consent was obtained, the patient was brought into the operating room and laid in the supine position. The area of bilateral axillae and chest were prepped and draped in a normal sterile fashion. Attention was turned to the right axilla. There is a large area of the right axilla that was involved in the hidradenitis with multiple fistulae. This extended up onto the skin of the inner arm. A large portion of skin was excised down to the axillary fascia. All affected tissue was removed sharply and excisionally. This was done with a mixture of scalpel excision and Bovie electrocautery. The large defect was impossible to close longitudinally or transversely. Secondary to this, a rotation flap was created infero-laterally. A relaxing incision was created and a rotation flap was undertaken. This allowed advancement of tissue from the infero-lateral axilla and back to close the large soft tissue defect. A 15 [place]grin round Orestes drain was inserted into the wound prior to closure. It was brought out through a separate stab incision. The subcutaneous tissue was closed using 2-0 Vicryl suture in simple interrupted fashion. The overlying skin was closed using 3-0 nylon suture in simple interrupted fashion. Attention was then turned to the left axilla. The left axilla was inspected. The extent of hidradenitis was not as severe as the right. It was felt that a simple excision with closure would be adequate. All of the skin of the left axilla was excised sharply. This was done using a 15 blade scalpel as well as Bovie electrocautery. All the fistulae were removed. Skin flaps were raised laterally and the incision was closed transversely. This was done over a 15 [place]enegrin round Orestes drain. The subcutaneous tissue was closed using 2-0 Vicryl suture in simple interrupted fashion. The overlying skin was closed using 3-0 nylon suture in simple interrupted fashion. Dressings were then placed, and the procedure was concluded. All sponge, instrument, and needle counts were correct x2. Condition: Stable. Barbara Park PA-C was scrubbed and present the entirety of the procedure. She assisted with all portions of the procedure including excision of the axillary skin, creation of the rotation flap, closure of the subcutaneous tissue, and closure of the skin.
== END 2018-08-13 19:17 | disposition home or self-care (01) ==
LOC: OROUT 10:37
PROVIDERS: ATTEND Surgery
DX: L73.2 Hidradenitis suppurativa (principal); I25.10 Atherosclerotic heart disease of native coronary artery without angina pectoris; I25.2 Old myocardial infarction; I10 Essential (primary) hypertension; I45.4 Nonspecific intraventricular block; E03.9 Hypothyroidism, unspecified; E11.9 Type 2 diabetes mellitus without complications; F41.0 Panic disorder [episodic paroxysmal anxiety]; G47.00 Insomnia, unspecified; R07.9 Chest pain, unspecified; Z88.1 Allergy status to other antibiotic agents; Z88.8 Allergy status to other drugs, medicaments and biological substances; Z87.891 Personal history of nicotine dependence; Z79.899 Other long term (current) drug therapy; Z79.84 Long term (current) use of oral hypoglycemic drugs; Z79.82 Long term (current) use of aspirin; Z79.4 Long term (current) use of insulin
CPT/HCPCS: 93005; 36415; 82962; 85027; 80048; 88305 ×2; 71046; 93010; 11450; 11451; 14040; J2250; J0690; J1100; J3490 ×3; J3010; J1815; J2765; J0330; J2405; J2704; S0028; 400; J3370; J7060

== ENCOUNTER 2019-04-02 13:57 | Day surgery (SDC) | payer OTHER ==
[2019-03-19 10:01] LABS: HEMATOCRIT 36.8 % (36.0-47.0); HEMOGLOBIN 12.6 g/dL (12.0-15.5); MEAN CORPUSCULAR HEMOGLOBIN 29.7 pg (27.0-33.4); MEAN CORPUSCULAR HGB CONC 34.2 g/dL (32.0-36.0); MEAN CORPUSCULAR VOLUME 87 fl (80-97); PLATELET COUNT 294 10^3/uL (150-450); RED BLOOD COUNT 4.23 10^6/uL (3.72-5.28); RED CELL DISTRIBUTION WIDTH 13.3 % (11.5-14.0); WHITE BLOOD COUNT 10.7 10^3/uL (4.0-10.5)
[2019-03-19 10:25] LABS: ANION GAP 12 (5-19); BLOOD UREA NITROGEN 17 mg/dL (7-20); CALCIUM 9.8 mg/dL (8.4-10.2); CARBON DIOXIDE 29 mmol/L (22-30); CHLORIDE 98 mmol/L (98-107); GLUCOSE 133 mg/dL (75-110); POTASSIUM 4.4 mmol/L (3.6-5.0)
--- NOTE | 2019-03-19 13:50 | EKG REPORT ---
SEVERITY:- ABNORMAL ECG - SINUS RHYTHM PROBABLE LEFT ATRIAL ABNORMALITY LEFT BUNDLE BRANCH BLOCK : Confirmed by: Ubaldo Hirsch MD 19-Mar-2019 13:49:37
[~2019-04-02 13:57] MED LIST changes: +ACETAMINOPHEN 325 MG TABLET PO PRN; +DOXYCYCLINE HYCLATE 100 MG in DEXTROSE 5%-WATER 250 ML IV PRN; +IBUPROFEN 800 MG in NORMAL SALINE 250 ML IV PRN; +ROCURONIUM BROMIDE INJ 50 MG/5 ML VIAL IV ONE; +SUCCINYLCHOLINE CHLORIDE INJ 200 MG/10 ML VIAL ONE; -VANCOMYCIN HCL 1,000 MG in DEXTROSE 5%-WATER 250 ML IV PRN
[2019-04-02] MEDS ORDERED: ACETAMINOPHEN 325 MG TABLET ONE (14:55)
[2019-04-02] MEDS ORDERED: FENTANYL CITRATE INJ/PF 250 MCG/5 ML AMPULE ONE (15:48)
[2019-04-02] MEDS ORDERED: MIDAZOLAM 2 MG/2 ML INJ ONE (15:48)
[2019-04-02] MEDS ORDERED: DEXAMETHASONE SOD PHOSPHATE INJ 4 MG/1 ML VIAL ONE (15:48)
[2019-04-02] MEDS ORDERED: ONDANSETRON HCL INJ/PF 4 MG/2 ML SDV ONE (15:48)
[2019-04-02] MEDS ORDERED: PROPOFOL INJ 200 MG/20 ML VIAL IV ONE (15:48)
[2019-04-02] MEDS ORDERED: BUPIVACAINE HCL 0.25 % INJ/PF (2.5 MG/1 ML) 30 ML VIAL ONE (15:54)
[2019-04-02] MEDS ORDERED: LIDOCAINE 1% INJ-PF (10 MG/ML) 30 ML SDV ONE (15:59)
[2019-04-02] MEDS ORDERED: PROMETHAZINE HCL INJ 25 MG/1 ML VIAL IV PRN (16:21)
[2019-04-02] MEDS ORDERED: FENTANYL CITRATE INJ/PF 100 MCG/2 ML AMPUL IV PRN ×3 (16:21)
[2019-04-02] MEDS ORDERED: HYDROCODONE/ACETAMINOPHEN 10-325 MG TABLET PO PRN (17:39)
[2019-04-02 19:05] VITALS: BP 144/84
--- NOTE | 2019-04-06 07:59 | Discharge Summary ---
Discharge Summary (SDC) - Discharge Final Diagnosis: Multiple abscesses of bilateral groins Date of Surgery: 04/02/19 Discharge Date: 04/02/19 Condition: Stable Forms: ASU Anesthesia D/C Instruction, Discharge POC-Surgical Service Treatment or Instructions: Discharge home. Diet as tolerated. Activity: Nonstrenuous. Okay to shower. Damp to dry dressing changes daily on abscess cavities. Follow-up with me in 7 to 10 days. Referrals: IDALIA HDZ MD [ACTIVE STAFF] - (Follow up 04/12/19 @0815) YEVGENIY RUIZ MD [Primary Care Provider] - Discharge Diet: As Tolerated Respiratory Treatments at Home: Deep Breathing/Coughing, Incentive Spirometer Discharge Activity: Balance Activity w/Rest, No Lifting/Push/Pulling Home Care Assistance: Provided by Family Report the Following to Your Physician Immediately: Shortness of Breath, I ncrease in Pain, Fever over 101 Degrees, Unusual Bleeding, Redness, Swelling, Warmth, Increased Soreness, Drainage-Yellow, IV Site Infection Signs
--- NOTE | 2019-04-06 08:02 | Operative Report ---
Nonrecallable Operative Report DATE OF SURGERY: 04/02/19 PREOPERATIVE DIAGNOSIS: Multiple abscesses in bilateral groins, due to hidradenitis. POSTOPERATIVE DIAGNOSIS: Same as above OPERATION: Incision and drainage of multiple, complex right and left groin abscesses. SURGEON: IDALIA HDZ ANESTHESIA: GA TISSUE REMOVED OR ALTERED: None COMPLICATIONS: None apparent ESTIMATED BLOOD LOSS: Minimal PROCEDURE: Drains/implants: Damp 4 x 4 gauze. Procedure in detail: After informed consent was obtained, the patient was brought to the operating room and laid in the low lithotomy position. The area of the groin and perineum were prepped and draped in a normal sterile fashion. Incisions were created over the multiple areas of abscess with a 15 blade scalpel. There were was fistulization in many of these areas. The fistula tracts were laid open, and the fistulas were curetted and cauterized. This was done in multiple areas in bilateral groins. After all abscesses were drained, and the fistulas were curetted, dressings were placed. At this time the procedure was concluded. All sponge, instrument, and needle counts were correct x2. Condition: Stable.
== END 2019-04-02 19:00 | disposition home or self-care (01) ==
LOC: OROUT 13:57
PROVIDERS: ATTEND Surgery
DX: L73.2 Hidradenitis suppurativa (principal); L02.214 Cutaneous abscess of groin; I25.10 Atherosclerotic heart disease of native coronary artery without angina pectoris; I10 Essential (primary) hypertension; I45.4 Nonspecific intraventricular block; E03.9 Hypothyroidism, unspecified; E11.9 Type 2 diabetes mellitus without complications; F41.0 Panic disorder [episodic paroxysmal anxiety]; R07.9 Chest pain, unspecified; I25.2 Old myocardial infarction; Z09 Encounter for follow-up examination after completed treatment for conditions other than malignant neoplasm; Z87.891 Personal history of nicotine dependence; Z79.899 Other long term (current) drug therapy; Z79.4 Long term (current) use of insulin; Z79.84 Long term (current) use of oral hypoglycemic drugs; Z79.82 Long term (current) use of aspirin
CPT/HCPCS: 93005; 36415; 82962; 85027; 80048; 93010; 00400; 10061; J2250; J3490 ×3; J1100; J3010; J0330; J2405; J7060; J7050; J2704; J1741; 400

== ENCOUNTER 2019-04-26 06:21 | Day surgery (SDC) | payer OTHER ==
[~2019-04-26 06:21] MED LIST changes: -ACETAMINOPHEN 325 MG TABLET PO PRN; +BUPIVACAINE HCL 0.75% INJ/PF (7.5 MG/1 ML) 10 ML SDV OS PRN; -DOXYCYCLINE HYCLATE 100 MG in DEXTROSE 5%-WATER 250 ML IV PRN; -IBUPROFEN 800 MG in NORMAL SALINE 250 ML IV PRN; +KETOROLAC TROMETHAMINE 0.45% 4 DROP/0.4 ML DROPERETTE OS PRN; -LACTATED RINGERS 1000 ML IV PRN; -LIDOCAINE 0.5% INJ-PF (5 MG/ML) 50 ML SDV SUBCUT PRN; +LIDOCAINE 4% INJ/PF (40 MG/ML) 5 ML AMPUL OS PRN; -ROCURONIUM BROMIDE INJ 50 MG/5 ML VIAL IV ONE; -SUCCINYLCHOLINE CHLORIDE INJ 200 MG/10 ML VIAL ONE
[2019-04-26] MEDS: TETRACAINE HCL 0.5% OPH SOLN 4 ML OS PRN ×2 (06:54→07:23)
[2019-04-26] MEDS: TROPICAMIDE 1% OPH SOLN 15 ML OS PRN ×3 (06:54→07:22)
[2019-04-26] MEDS: CYCLOPENTOLATE 0.2%/PHENYLEPHRINE 1% OPH SOLN 2 ML OS PRN ×3 (06:55→07:22)
[2019-04-26] MEDS: BESIFLOXACIN HCL 0.6% OPH SUSP 5 ML BOTTLE OS PRN ×4 (06:55→07:55)
[2019-04-26] MEDS ORDERED: ONDANSETRON HCL INJ/PF 4 MG/2 ML SDV ONE (07:02)
[2019-04-26] MEDS ORDERED: FENTANYL CITRATE INJ/PF 100 MCG/2 ML AMPUL ONE (07:02)
[2019-04-26] MEDS ORDERED: MIDAZOLAM 2 MG/2 ML INJ ONE (07:02)
[2019-04-26] MEDS ORDERED: EPINEPHRINE INJ/PF 1 MG/1 ML AMPULE ONE (07:10)
[2019-04-26] MEDS ORDERED: LIDOCAINE 1% INJ-PF (10 MG/ML) 30 ML SDV ONE (07:10)
[2019-04-26] MEDS ORDERED: CHONDR SU A NA/HYALUR INTRAOC KIT (SURGICARE) ONE (07:11)
[2019-04-26] MEDS: DORZOLAMIDE HCL 2%/TIMOLOL MALEAT 0.5% OPH SOLN 10 ML OS PRN ×2 (07:55)
--- NOTE | 2019-04-26 09:41 | Operative Report ---
Operative Report-[facility] Operative Report: DATE OF SURGERY: 04/26/2019 PREOPERATIVE DIAGNOSIS: CATARACT, LEFT EYE. POSTOPERATIVE DIAGNOSIS: CATARACT, LEFT EYE. PROCEDURE PERFORMED: PHACOEMULSIFICATION WITH POSTERIOR CHAMBER INTRAOCULAR LENS, LEFT EYE. Intraocular Lens Model : SN 6 0 WF 22.5 Total Phaco Time: 4.22 CDE SURGEON: JOSE WAYNE MD ANESTHESIA: TOPICAL WITH MAC. INDICATIONS FOR SURGERY: Difficultly driving at night PROCEDURE: The patient was brought to the Operating Room and placed on the operative table. Following tetracaine drops, topical anesthesia was administered. This consisted of instrument wipe pledgets soaked in a solution of 4% Xylocaine mixed with 0.75% Marcaine in a 1:2 ratio. A 2 x 1 cm pledget was placed in the superior fornix. A 1 x 1 cm pledget was placed in the inferior fornix. The eye was patched shut for 5 minutes. The patch was removed. The eye was sterilely prepped and draped in the usual manner. Lid speculum was placed in the eye. The pledgets were removed. 4-0 black silk sutures were placed around the superior and the inferior rectus muscles to be used as traction. A conjunctival peritomy was made at the 10 o'clock position. Hemostasis was obtained with bipolar cautery. A posterior limbal groove was created using a crescent knife and dissected anteriorly towards the cornea. A sharp point blade was used to create a paracentesis site at the 2 o'clock position. 0.2 cc non preserved Lidocaine was injected into the anterior chamber. A 2.4 mm keratome was used to enter the anterior chamber through the groove. Viscoelastic was injected into the anterior chamber. An anterior capsulotomy was performed using Utrata forceps in a capsulorrhexis fashion. Hydrodissection and hydrodelineation were performed. Phacoemulsification was performed in [id number] technique. Following this, the I/A unit was used to remove residual cortex. Viscoelastic was injected into the capsular bag. The Intraocular lens was placed in the capsular bag. The I/A unit was used to remove residual viscoelastic. The wound was seen to be watertight under high and low pressure, and no sutures were placed. The intraocular lens was well centered. The pressure was adjusted in the eye to normal pressure. The 4-0 black silk sutures and lid speculum were removed. The eye was shielded after Besivance and Cosopt drops were placed. The patient tolerated the procedure well and was sent to the Recovery Room in good condition.
== END 2019-04-26 08:31 | disposition home or self-care (01) ==
LOC: SC 06:21
PROVIDERS: ATTEND Ophthalmology
DX: H25.9 Unspecified age-related cataract (principal); I10 Essential (primary) hypertension; E11.9 Type 2 diabetes mellitus without complications; E07.9 Disorder of thyroid, unspecified; Z79.84 Long term (current) use of oral hypoglycemic drugs; Z79.899 Other long term (current) drug therapy
CPT/HCPCS: 66984; 82962; V2632; J2250; J3490 ×5; J0171; J2405; J3010

== ENCOUNTER 2019-05-25 06:50 | Day surgery (SDC) | payer OTHER ==
[~2019-05-25 06:50] MED LIST changes: +BUPIVACAINE HCL 0.75% INJ/PF (7.5 MG/1 ML) 10 ML SDV OD PRN; -BUPIVACAINE HCL 0.75% INJ/PF (7.5 MG/1 ML) 10 ML SDV OS PRN; +KETOROLAC TROMETHAMINE 0.45% 4 DROP/0.4 ML DROPERETTE OD PRN; -KETOROLAC TROMETHAMINE 0.45% 4 DROP/0.4 ML DROPERETTE OS PRN; +LIDOCAINE 4% INJ/PF (40 MG/ML) 5 ML AMPUL OD PRN; -LIDOCAINE 4% INJ/PF (40 MG/ML) 5 ML AMPUL OS PRN
[2019-05-25] MEDS: BESIFLOXACIN HCL 0.6% OPH SUSP 5 ML BOTTLE OD PRN ×4 (07:10→08:22)
[2019-05-25] MEDS: CYCLOPENTOLATE 0.2%/PHENYLEPHRINE 1% OPH SOLN 2 ML OD PRN ×3 (07:10→07:40)
[2019-05-25] MEDS: TROPICAMIDE 1% OPH SOLN 15 ML OD PRN ×3 (07:10→07:40)
[2019-05-25] MEDS: TETRACAINE HCL 0.5% OPH SOLN 4 ML OD PRN ×4 (07:10→07:59)
[2019-05-25] MEDS ORDERED: MIDAZOLAM 2 MG/2 ML INJ ONE (07:34)
[2019-05-25] MEDS: EPINEPHRINE INJ/PF 1 MG/1 ML AMPULE ONE ×2 (08:10)
[2019-05-25] MEDS: CHONDR SU A NA/HYALUR INTRAOC KIT (SURGICARE) ONE ×2 (08:10)
[2019-05-25] MEDS: LIDOCAINE 1% INJ-PF (10 MG/ML) 30 ML SDV ONE ×2 (08:10)
[2019-05-25] MEDS: DORZOLAMIDE HCL 2%/TIMOLOL MALEAT 0.5% OPH SOLN 10 ML OD PRN ×2 (08:22)
--- NOTE | 2019-05-25 08:31 | Operative Report ---
Operative Report-[facility] Operative Report: DATE OF SURGERY: 05/25/2019 PREOPERATIVE DIAGNOSIS: CATARACT, RIGHT EYE. POSTOPERATIVE DIAGNOSIS: CATARACT, RIGHT EYE. PROCEDURE PERFORMED: PHACOEMULSIFICATION WITH POSTERIOR CHAMBER INTRAOCULAR LENS, RIGHT EYE. Intraocular Lens Model : SN 60 WF 23.0 Total Phaco Time: 4.92 CDE SURGEON: JOSE WAYNE MD ANESTHESIA: TOPICAL WITH MAC. INDICATIONS FOR SURGERY: Optical imbalance following cataract surgery on the left eye. PROCEDURE: The patient was brought to the Operating Room and placed on the operative table. Following tetracaine drops, topical anesthesia was administered. This consisted of instrument wipe pledgets soaked in a solution of 4% Xylocaine mixed with 0.75% Marcaine in a 1:2 ratio. A 2 x 1 cm pledget was placed in the superior fornix. A 1 x 1 cm pledget was placed in the inferior fornix. The eye was patched shut for 5 minutes. The patch was removed. The eye was sterilely prepped and draped in the usual manner. Lid speculum was placed in the eye. The pledgets were removed. 4-0 black silk sutures were placed around the superior and the inferior rectus muscles to be used as traction. A conjunctival peritomy was made at the 10 o'clock position. Hemostasis was obtained with bipolar cautery. A posterior limbal groove was created using a crescent knife and dissected anteriorly towards the cornea. A sharp point blade was used to create a paracentesis site at the 2 o'clock position. 0.2 cc non preserved Lidocaine was injected into the anterior chamber. A 2.4 mm keratome was used to enter the anterior chamber through the groove. Viscoelastic was injected into the anterior chamber. An anterior capsulotomy was performed using Utrata forceps in a capsulorrhexis fashion. Hydrodissection and hydrodelineation were performed. Phacoemulsification was performed in [id number] technique. Following this, the I/A unit was used to remove residual cortex. Viscoelastic was injected into the capsular bag. The Intraocular lens was placed in the capsular bag. The I/A unit was used to remove residual viscoelastic. The wound was seen to be watertight under high and low pressure, and no sutures were placed. The intraocular lens was well centered. The pressure was adjusted in the eye to normal pressure. The 4-0 black silk sutures and lid speculum were removed. The eye was shielded after Besivance and Cosopt drops were placed. The patient tolerated the procedure well and was sent to the Recovery Room in good condition.
== END 2019-05-25 08:54 | disposition home or self-care (01) ==
LOC: SC 06:50
PROVIDERS: ATTEND Ophthalmology
DX: H25.811 Combined forms of age-related cataract, right eye (principal); Z96.1 Presence of intraocular lens; I25.2 Old myocardial infarction; I10 Essential (primary) hypertension; E11.9 Type 2 diabetes mellitus without complications; E07.9 Disorder of thyroid, unspecified; Z79.84 Long term (current) use of oral hypoglycemic drugs; Z79.82 Long term (current) use of aspirin
CPT/HCPCS: 66984; 82962; J2250; J3490 ×5; J0171; V2632

== ENCOUNTER → 2019-11-26 | Outpatient (CLI) | payer SELFPAY, OTHER ==
[2019-11-26 10:29] LABS: HEMATOCRIT 36.2 % (36.0-47.0); HEMOGLOBIN 12.5 g/dL (12.0-15.5); MEAN CORPUSCULAR HEMOGLOBIN 30.2 pg (27.0-33.4); MEAN CORPUSCULAR HGB CONC 34.5 g/dL (32.0-36.0); MEAN CORPUSCULAR VOLUME 88 fl (80-97); PLATELET COUNT 271 10^3/uL (150-450); RED BLOOD COUNT 4.13 10^6/uL (3.72-5.28); RED CELL DISTRIBUTION WIDTH 13.8 % (11.5-14.0); WHITE BLOOD COUNT 10.6 10^3/uL (4.0-10.5)
[2019-11-26 10:48] LABS: ANION GAP 10 (5-19); BLOOD UREA NITROGEN 23 mg/dL (7-20); CALCIUM 9.6 mg/dL (8.4-10.2); CARBON DIOXIDE 25 mmol/L (22-30); CHLORIDE 98 mmol/L (98-107); GLUCOSE 383 mg/dL (75-110); POTASSIUM 4.5 mmol/L (3.6-5.0)
--- NOTE | 2019-11-26 12:53 | EKG REPORT ---
SEVERITY:- ABNORMAL ECG - SINUS RHYTHM MULTIPLE VENTRICULAR PREMATURE COMPLEXES PROBABLE LEFT ATRIAL ABNORMALITY LEFT BUNDLE BRANCH BLOCK : Confirmed by: Ubaldo Hirsch MD 26-Nov-2019 12:52:38
== END ==
LOC: OD 09:57 → EDSTATUS 12-24 09:00
PROVIDERS: ATTEND Surgery
DX: Z01.810 Encounter for preprocedural cardiovascular examination (principal); Z01.812 Encounter for preprocedural laboratory examination; Z03.818 Encounter for observation for suspected exposure to other biological agents ruled out
CPT/HCPCS: 36415; 80048; 85027; 87635; 93005; 93010

== ENCOUNTER → 2019-12-15 | Outpatient (CLI) | payer OTHER ==
[~2019-12-15] MED LIST changes: -BUPIVACAINE HCL 0.75% INJ/PF (7.5 MG/1 ML) 10 ML SDV OD PRN; -KETOROLAC TROMETHAMINE 0.45% 4 DROP/0.4 ML DROPERETTE OD PRN; -LIDOCAINE 4% INJ/PF (40 MG/ML) 5 ML AMPUL OD PRN; +REGADENOSON INJ 0.4 MG/5 ML DISP.SYRIN IV ONE
--- NOTE | 2019-12-15 23:05 | XCELERA REPORT ---
[address] [address] Transthoracic Echocardiogram Report Name: CARIDAD BLAS Age: 64 yrs Gender: Female : 1955 Patient Status: Outpatient Patient Location: RAD Study Date: 12/15/2019 11:08 AM Height: 68 in Weight: 210 lb BSA: 2.1 m2 Procedure: A two-dimensional transthoracic echocardiogram with color flow and Doppler was performed. Study Quality: Technically suboptimal. Reason For Study: ABNORMAL EKG History: ABNORMAL EKG / PRE-OP. Ordering Physician: JINA DUGAN Performed By: Darryn Luevano Interpretation Summary The left ventricle is mildly dilated. There is normal left ventricular wall thickness. LV EF is 35% Left ventricular systolic function is moderately reduced. Doppler measurements suggest impaired left ventricular relaxation, which is associated with grade I/IV or mild diastolic dysfunction There is moderate global hypokinesis of the left ventricle. Septal motion is consistent with conduction abnormality There is no thrombus. No ASD ,VSD , or PFO seen. The right ventricle is not well visualized secondary to technical limitations The right atrium is normal. Right atrium not well visualized secondary to technical limitations The left atrium is mildly dilated. There is no evidence of mitral valve prolapse. There is no vegetation seen on the mitral valve. There is no mitral valve stenosis. There is a moderate amount of mitral regurgitation There is no aortic valvular vegetation. There is no aortic valve stenosis There is no LVOT obstruction. No aortic regurgitation is present. There is no tricuspid stenosis. There is a trace amount of tricuspid regurgitation There is mild pulmonary hypertension by echo RVSP is 34 to 39 mm of Hg , with RA mean of 5 to 10. There is a trace amount of pulmonic regurgitation The aortic root is normal size. The inferior vena cava appeared normal and decreased > 50% with respiration (RAP 5-10 mmHg) There is no pericardial effusion. MMode/2D Measurements & Calculations RVDd: 2.5 cm LVIDd: 5.3 cm FS: 15.0 % Ao root diam: 2.8 cm IVSd: 0.99 cm LVIDs: 4.5 cm EDV(Teich): 136.3 ml Ao root area: 6.1 cm2 LVPWd: 1.0 cm ESV(Teich): 93.3 ml LA dimension: 4.3 cm EF(Teich): 31.5 % Doppler Measurements & Calculations MV E max lucila: MV P1/2t max lucila: Ao V2 max: LV V1 max P.9 cm/sec 124.3 cm/sec 144.4 cm/sec 6.5 mmHg MV A max lucila: MV P1/2t: 69.1 msec Ao max P.3 mmHgLV V1 max: 131.8 cm/sec MVA(P1/2t): 3.2 cm2 127.8 cm/sec MV E/A: 0.94 MV dec slope: 526.7 cm/sec2 MV dec time: 0.17 sec PA V2 max: TR max lucila: MV P1/2t-pr_phl: 83.9 cm/sec 268.6 cm/sec 69.1 msec PA max P.8 mmHgTR max P.9 mmHg Left Ventricle The left ventricle is mildly dilated. There is normal left ventricular wall thickness. LV EF is 35%. Left ventricular systolic function is moderately reduced. Doppler measurements suggest impaired left ventricular relaxation, which is associated with grade I/IV or mild diastolic dysfunction. There is moderate global hypokinesis of the left ventricle. Septal motion is consistent with conduction abnormality. There is no thrombus. No ASD ,VSD , or PFO seen. Right Ventricle The right ventricle is not well visualized secondary to technical limitations. Atria The right atrium is normal. Right atrium not well visualized secondary to technical limitations. The left atrium is mildly dilated. Mitral Valve There is no evidence of mitral valve prolapse. There is no vegetation seen on the mitral valve. There is no mitral valve stenosis. There is a moderate amount of mitral regurgitation. Aortic Valve There is no aortic valvular vegetation. There is no aortic valve stenosis. There is no LVOT obstruction. No aortic regurgitation is present. Tricuspid Valve There is no tricuspid stenosis. There is a trace amount of tricuspid regurgitation. There is mild pulmonary hypertension by echo. RVSP is 34 to 39 mm of Hg , with RA mean of 5 to 10. Pulmonic Valve There is no pulmonic valvular stenosis. There is a trace amount of pulmonic regurgitation. Great Vessels The aortic root is normal size. The inferior vena cava appeared normal and decreased > 50% with respiration (RAP 5-10 mmHg). Effusions There is no pericardial effusion. : JINA DUGAN Lakshmi
== END ==
LOC: RAD 06:35
PROVIDERS: ATTEND Specialist
DX: R94.31 Abnormal electrocardiogram [ECG] [EKG] (principal)
CPT/HCPCS: 93306; 93017; 78452; A9500; Q9969; J2785